=== PATIENT | male | born 1975 | race Caucasian/White ===

== ENCOUNTER 2016-11-15 08:35 | Emergency (ER) | payer BC ==
[2016-11-15 09:10] VITALS: BP 120/78
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
== END 2016-11-15 10:02 | disposition home or self-care (01) ==
LOC: UCEAST 08:35
DX: L03.221 Cellulitis of neck (principal)
CPT/HCPCS: 99211; G0463

== ENCOUNTER 2017-06-11 17:00 | Emergency (ER) | payer SELFPAY ==
[2017-06-11 17:08] VITALS: BP 143/91
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
== END 2017-06-11 17:30 | disposition left against medical advice (07) ==
LOC: UCEAST 17:00
DX: S41.111A Laceration without foreign body of right upper arm, initial encounter (principal); S40.021A Contusion of right upper arm, initial encounter; S50.12XA Contusion of left forearm, initial encounter; V43.53XA Car driver injured in collision with pick-up truck in traffic accident, initial encounter; Y93.89 Activity, other specified; Y92.410 Unspecified street and highway as the place of occurrence of the external cause; R00.0 Tachycardia, unspecified; Z87.891 Personal history of nicotine dependence
CPT/HCPCS: 99212; G0463

== ENCOUNTER 2017-06-11 17:51 | Emergency (ER) | payer SELFPAY ==
[2017-06-11] MEDS ORDERED: Silver Sulfadiazine 1% 400gm* 1 APPLIC JAR TOPICAL ONE (20:15)
[2017-06-11] MEDS ORDERED: Silver Sulfadiazine 1%* 20 GM ONE (20:32)
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
[2017-06-11 21:06] VITALS: BP 111/97
== END 2017-06-11 21:07 | disposition home or self-care (01) ==
LOC: ED 17:51
DX: T22.011A Burn of unspecified degree of right forearm, initial encounter (principal); T31.0 Burns involving less than 10% of body surface; W22.11XA Striking against or struck by driver side automobile airbag, initial encounter; V43.52XA Car driver injured in collision with other type car in traffic accident, initial encounter; Y92.9 Unspecified place or not applicable; Z87.891 Personal history of nicotine dependence
CPT/HCPCS: 70450; 93005; 99282; A9270-GY

== ENCOUNTER 2019-11-30 10:46 | Emergency (ER) | payer MEDICARE, BC ==
[2019-11-30] MEDS ORDERED: oxyCODONE/Acetamin 5/325 MG* TAB PO ONE (11:22)
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
[2019-11-30] MEDS ORDERED: Morphine 4 MG/ML VIAL (1 ml) 4 MG/ML VIAL IV ONE ×2 (12:23→13:04)
[2019-11-30] MEDS ORDERED: NS 0.9% 1000 ML** 1,000 ML IV ONE (12:38)
[2019-11-30] MEDS ORDERED: fentaNYL* 50 MCG/ML 2 ML VIAL (100 MCG VIAL) IV SLOW PU ONE ×2 (14:16→16:07)
[2019-11-30] MEDS ORDERED: Ketorolac INJ* 30 MG/ML 1 ML VIAL IV ONE (14:16)
[2019-11-30 16:03] VITALS: BP 113/66
== END 2019-11-30 16:22 | disposition short-term general hospital (02) ==
LOC: ED 10:46
DX: S72.145A Nondisplaced intertrochanteric fracture of left femur, initial encounter for closed fracture (principal); W00.9XXA Unspecified fall due to ice and snow, initial encounter; Y92.9 Unspecified place or not applicable; Z87.891 Personal history of nicotine dependence; Z79.899 Other long term (current) drug therapy
CPT/HCPCS: 71045; 96361; 96374; 96375; 96376; 99284; A9270-GY; J1885; J2270; J3010